=== PATIENT | female | born 1960 | race Caucasian/White ===

== ENCOUNTER 2025-01-01 07:25 | Day surgery (SDC) | payer MEDICARE ==
--- NOTE | 2024-12-28 09:34 | NUR ---
PHONE CALL TO PT NO ANSWER LEFT MESSAGE
[~2025-01-01] VITALS: Ht 162.6 cm; Wt 68.2 kg
[~2025-01-01 07:25] MED LIST: CEFAZOLIN SODIUM 2 GM/20 ML SYR IV SCH; DICLOFENAC SODI50 MG PO; IBLOOD GLUCOSE TEST STRIP 1 EA TEST VI PRN; LACTATED RINGER'S 1,000 ML IV SCH; LEVOTHYROXINE88 MC1 PO; LIDOCAINE HCL 1% 5 ML SDV INJ ONE
[2025-01-01 07:42] VITALS: BP 137/87
[2025-01-01] MEDS ORDERED: ondansetron HCL 4 MG/2 ML VIAL ONE (09:47)
[2025-01-01] MEDS ORDERED: KETOROLAC TROMETHAMINE 30 MG/ML VIAL ONE ×2 (09:47→10:03)
[2025-01-01] MEDS ORDERED: LIDOCAINE HCL 2% 5 ML SDV ONE (09:47)
[2025-01-01] MEDS ORDERED: fentaNYL citrate 100 MCG/2 ML VIAL ONE (09:47)
[2025-01-01] MEDS ORDERED: ACETAMINOPHEN 1,000 MG/100 ML VIAL ONE (09:47)
[2025-01-01] MEDS ORDERED: propofoL 200 MG/20 ML VIAL ONE (09:47)
[2025-01-01] MEDS ORDERED: HYDROCODONE/ACETA 5/325 TAB PO PRN (10:00)
[2025-01-01] MEDS ORDERED: fentaNYL citrate 50 MCG/ML SDV IV PRN (10:30)
[2025-01-01] MEDS ORDERED: ondansetron HCL 4 MG/2 ML VIAL IV PRN (10:30)
[2025-01-01] MEDS ORDERED: IBLOOD GLUCOSE TEST STRIP 1 EA TEST VI PRN (10:30)
[2025-01-01] MEDS ORDERED: PROCHLORPERAZINE EDISYLATE 10 MG/2 ML VIAL IV PRN (10:30)
[2025-01-01] MEDS ORDERED: NALOXONE HCL 0.4 MG SYR IV PRN (10:30)
[2025-01-01] MEDS ORDERED: droPERidol 5 MG/2 ML VIAL IV PRN (10:30)
[2025-01-01] MEDS ORDERED: HYDROmorphone HCL 1 MG/ML SYR IV PRN (10:30)
[2025-01-01] MEDS ORDERED: DICLOFENAC SODI75 MG PO (10:39)
[2025-01-01] MEDS ORDERED: HYDROCODON-ACE1 EA10 PO (10:39)
--- NOTE | 2025-01-01 10:43 | NUR ---
01/01/25 1043 Laurel Pascal PT TO PACU O2 VIA MASK FOGGING NOTED IN MASK.
[2025-01-01 11:06] VITALS: BP 128/75
--- NOTE | 2025-01-01 11:08 | NUR ---
LE 1100: PT IS BACK TO DS FROM PACU. SHE IS REPORTING 10/10 PAIN. SHE WOULD LIKE COFFEE, WATER, AND SALTINES. CALL LIGHT WITHIN REACH. IS AT THE BEDSIDE. DC CRITERIA IS REVIEWED.
--- NOTE | 2025-01-01 11:33 | NUR ---
BOGDAN 1130: PT IS TOLERATING COFFEE, WATER, AND CRACKERS. SHE IS GIVEN A PAIN PILL.
[2025-01-01 11:58] VITALS: BP 134/71
--- NOTE | 2025-01-01 12:00 | NUR ---
PT IS DOING WELL. SHE REPORTS GREAT IMPROVEMENT IN HER PAIN. IS AT THE BEDSIDE. CALL LIGHT WITHIN REACH.
[2025-01-01] MEDS ORDERED: SEVOFLURANE 250 ML BTL INH ONE (12:49)
[2025-01-01 13:04] VITALS: BP 133/95
--- NOTE | 2025-01-01 13:19 | NUR ---
LE 1257: PT IS ASSISTED UP OOB TO THE BATHROOM. SHE IS ABLE TO AMBULATE INDEPENDENTLY AND BEAR WEIGHT ON THE RIGHT KNEE WITHOUT PAIN/DISCOMFORT. SHE IS ABLE TO VOID 250MLS. SHE AMBULATES BACK TO HER ROOM WHERE SHE INDICATES THAT SHE WOULD LIKE TO GO HOME. SHE IS EDUCATED ON HOW TO BEST DRESS HERSELF AND TO OPEN HER CURTAIN WHEN READY - ASSISTS WITH DRESSING. LE 1305: PT AND ARE GIVEN VERBAL AND WRITTEN DC INSTRUCTIONS, THEY BOTH VERBALIZE UNDERSTANDING. QUESTIONS ARE ASKED AND ANSWERED. LE 1310: PT IS TAKEN TO PERSONAL VEHICLE VIA WC. SHE IS ABLE TO TRANSFER HERSELF WITHOUT ISSUES.
[2025-01-01] MEDS ORDERED: DICLOFENAC SOD 75 MG TABEC PO SCH (21:00)
--- NOTE | 2025-01-02 08:28 | OR ---
[facility] [address], [place] [address] Signed DATE OF OPERATION: 01/01/2025 SURGEON: Alma Pascal MD PREOPERATIVE DIAGNOSIS: Medial meniscus tear, lateral meniscus tear, right knee. POSTOPERATIVE DIAGNOSIS: Medial meniscus tear, lateral meniscus tear, right knee. PROCEDURE PERFORMED: Right knee arthroscopy with partial, medial and lateral meniscectomies. CRM CONSULTANT: None. ANESTHESIA: General. BLOOD LOSS: Minimal. BRIEF HISTORY: Verito is a 64-year-old female with pain and instability in her knee. MRI was consistent with the above. Risks and benefits of operative treatment were discussed with her and she elected to proceed. Once consent was obtained she was taken to the operating room. After adequate anesthesia she was placed on the operating room bed. Left leg was flexed, abducted, and externally rotated on a well-padded leg hopkins. Right was placed in well-padded leg hopkins and prepped and draped in a standard sterile fashion. Portal sites were injected with 0.25% Marcaine with epinephrine and the standard inferolateral and superolateral portals were made and the scope was introduced in the knee. 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 Medial and lateral gutters were clear. There was marked synovitis throughout the knee. The medial and lateral femoral condyle showed grade 2 chondromalacia with grade 1 to 2 changes on the tibial side. She had a small posterior medial meniscus tear and a large mid lateral tear. She also had fairly significant chondrocalcinosis. DESCRIPTION OF OPERATION: Electronically Signed By: ALMA PASCAL MD 01/02/25 0828 PATIENT NAME: ELIEL RENNER OPERATIVE REPORT DATE OF : 58 REPORT #: [id number] PHYSICIAN: ALMA PASCAL MD PCP: PITO AGUIRRE [facility] REPORT IS CONFIDENTIAL AND NOT TO BE RELEASED WITHOUT AUTHORIZATION [facility] [address], [place] [address] Signed Standard inferior medial portal was made after localization using a spinal needle. Straight and curved biters were then used to trim both meniscus tears back to a stable rim. These were then smoothed, then feathered out using the shaver. All debris was evacuated. The scope was then withdrawn. Portals were closed with 3-0 nylon and the knee was injected with 60 mg Toradol. The wounds were dressed with Adaptic, ABDs and an Terry roll. She tolerated the procedure well. All sponge, needle, and instrument counts were correct. Alma Pascal MD BA/MODL /[id number] Copies: ~ Electronically Signed By: ALMA PASCAL MD 01/02/25 0828 PATIENT NAME: ELIEL RENNER OPERATIVE REPORT DATE OF : 58 REPORT #: [id number] PHYSICIAN: ALMA PASCAL MD PCP: PITO AGUIRRE PAC REPORT IS CONFIDENTIAL AND NOT TO BE RELEASED WITHOUT AUTHORIZATION
== END 2025-01-01 13:10 | disposition home or self-care (01) ==
LOC: DS 07:25
PROVIDERS: ATTEND Specialist
PROC: 0SBC4ZZ Excision of Right Knee Joint, Percutaneous Endoscopic Approach (ICD-10-PCS; 2025-01-01)
PROC: 0SBC4ZZ Excision of Right Knee Joint, Percutaneous Endoscopic Approach (ICD-10-PCS; principal; 2025-01-01 09:20)
DX: S83.241A Other tear of medial meniscus, current injury, right knee, initial encounter (principal); S83.281A Other tear of lateral meniscus, current injury, right knee, initial encounter; X58.XXXA Exposure to other specified factors, initial encounter; M94.261 Chondromalacia, right knee; M65.961 Unspecified synovitis and tenosynovitis, right lower leg; Z79.890 Hormone replacement therapy
CPT/HCPCS: J0131; J0690; J1885; J2003; J2405; J2704; J3010; J7121